=== PATIENT | female | born 1960 | race Caucasian/White ===

== ENCOUNTER 2017-06-19 20:09 | Emergency (ER) | payer OTHER ==
[~2017-06-19] VITALS: Ht 170.2 cm; Wt 69.3 kg
[~2017-06-19 20:09] MED LIST: Aspirin E.C. PO; Duragesic TD; ENDOCET 5-3251 EACH PO; Levothroid,Synthroid PO; MOTRIN800 MG PO; Natalcare Rx,Pramile PO; PERCOCET 10/1 TABLET PO
[2017-06-19 22:49] VITALS: BP 142/72
[2017-06-19] MEDS ORDERED: ULTRAM50 MG PO (23:00)
[2017-06-19] MEDS ORDERED: ZOFRAN ODT4 MG PO (23:00)
== END 2017-06-19 23:04 | disposition home or self-care (01) ==
LOC: EME 20:09
DX: S70.02XA Contusion of left hip, initial encounter (principal); S40.022A Contusion of left upper arm, initial encounter; S00.03XA Contusion of scalp, initial encounter; S09.90XA Unspecified injury of head, initial encounter; Y04.0XXA Assault by unarmed brawl or fight, initial encounter; Y93.K1 Activity, walking an animal; S10.93XA Contusion of unspecified part of neck, initial encounter; M26.602 Left temporomandibular joint disorder, unspecified; M50.322 Other cervical disc degeneration at C5-C6 level; J34.2 Deviated nasal septum; M50.323 Other cervical disc degeneration at C6-C7 level; T14.8 Other injury of unspecified body region; Z87.891 Personal history of nicotine dependence; Z79.82 Long term (current) use of aspirin; Z79.891 Long term (current) use of opiate analgesic
CPT/HCPCS: 70450; 70486; 72125; 73060; 73502; 99281; 99284